=== PATIENT | male | born 1975 | race Caucasian/White ===

== ENCOUNTER 2017-09-21 22:51 | Emergency (ER) | payer OTHER ==
[~2017-09-21] VITALS: Ht 188 cm; Wt 115.5 kg
[2017-09-21] MEDS ORDERED: SODIUM CHLORIDE FLUSH 10ML SYR IVF ONE (23:00)
[2017-09-21] MEDS ORDERED: KETOROLAC 30 MG/1 ML IVPush ONE (23:00)
[2017-09-21] MEDS ORDERED: SODIUM CHLORIDE 0.9% 1,000ML IVBOLUS ONE (23:00)
[2017-09-21] MEDS ORDERED: ONDANSETRON 2MG/ML, 2ML IVPush ONE (23:00)
[2017-09-21] MEDS ORDERED: HYDROmorphone 2 MG/ML, 1ML ONE (23:07)
[2017-09-21] MEDS ORDERED: KETOROLAC 30 MG/1 ML ONE (23:07)
[2017-09-21] MEDS ORDERED: ONDANSETRON 2MG/ML, 2ML ONE (23:08)
[2017-09-21 23:24] LABS: BASOPHILS # (AUTO) 0.02 x10^3/uL (0-0.1); BASOPHILS % (AUTO) 0 % (0-1); EOSINOPHILS # (AUTO) 0.01 x10^3/uL (0-0.4); EOSINOPHILS % (AUTO) 0 % (1-7); LYMPHOCYTES # (AUTO) 1.99 x10^3/uL (1-3.4); LYMPHOCYTES % (AUTO) 12 % (22-44); MD NO; MEAN CORPUSCULAR HEMOGLOBIN 29.4 pg (27.5-34.5); MEAN CORPUSCULAR HGB CONC 33.2 g/dL (33.2-36.2); MEAN CORPUSCULAR VOLUME 88.6 fL (81-97); MEAN PLATELET VOLUME 8.5 fL (7.4-10.4); MONOCYTES # (AUTO) 0.52 x10^3/uL (0.2-0.8); MONOCYTES % (AUTO) 3 % (2-9); NEUTROPHILS # (AUTO) 14.59 x10^3/uL (1.8-6.8); NEUTROPHILS % (AUTO) 85 % (42-75); PLATELET COUNT 227 x10^3/uL (130-400); RED BLOOD COUNT 4.86 x10^6/uL (4.38-5.82); RED CELL DISTRIBUTION WIDTH 13.3 % (9.4-14.8)
[2017-09-21] MEDS: HYDROmorphone 1 MG/ML, 1ML IVPush PRN (23:27)
[2017-09-21 23:37] LABS: ALANINE AMINOTRANSFERASE 57 U/L (12-78); ANION GAP 10 mmol/L (5-15); CALCIUM 8.7 mg/dL (8.5-10.1); CHLORIDE 107 mmol/L (98-107); CREATININE 1.43 mg/dL (0.7-1.3)
[2017-09-21 23:39] LABS: ALKALINE PHOSPHATASE 74 U/L (45-117); BILIRUBIN,TOTAL 0.3 mg/dL (0.2-1.0); TOTAL PROTEIN 7.5 g/dL (6.4-8.2)
[2017-09-22 00:31] LABS: MICROSCOPIC NOT IND
[2017-09-22 00:34] LABS: CULTURE INDICATED? NO
[2017-09-22] MEDS ORDERED: HYDROmorphone 2 MG/ML, 1ML ONE (00:48)
[2017-09-22] MEDS: HYDROmorphone 1 MG/ML, 1ML IVPush PRN (00:55)
[2017-09-22 01:02] VITALS: BP 139/74
== END 2017-09-22 01:20 | disposition home or self-care (01) ==
LOC: ED 23:59
DX: N13.2 Hydronephrosis with renal and ureteral calculous obstruction (principal)
CPT/HCPCS: 36415; 74176; 80053; 81003; 83690; 85025; 96361; 96374; 96375; 96376; 99285; J1170; J1885; J2405; J7030